=== PATIENT | female | born 1990 | race Native Hawaiian/Other Pacific Islander ===

== ENCOUNTER → 2017-01-30 | Outpatient (CLI) | payer OTHER ==
[~2017-01-30] MED LIST: ADVI200C9 PO; PHEN1.4%S MT; TYLE3 PO
== END ==
LOC: HPND 10:36
DX: O36.8120 Decreased fetal movements, second trimester, not applicable or unspecified (principal); O35.1XX0 Maternal care for (suspected) chromosomal abnormality in fetus, not applicable or unspecified; Z3A.24 24 weeks gestation of pregnancy
CPT/HCPCS: 76811

== ENCOUNTER → 2017-03-05 | Outpatient (CLI) | payer OTHER | LOC: HPND 08:02 | DX: O99.213 Obesity complicating pregnancy, third trimester (principal); Z3A.29 29 weeks gestation of pregnancy | CPT/HCPCS: 76816 ==

== ENCOUNTER → 2017-03-27 | Outpatient (CLI) | payer OTHER | LOC: HPND 09:08 | DX: O35.2XX0 Maternal care for (suspected) hereditary disease in fetus, not applicable or unspecified (principal); O99.213 Obesity complicating pregnancy, third trimester; R94.5 Abnormal results of liver function studies; Z3A.32 32 weeks gestation of pregnancy | CPT/HCPCS: 76811 ==

== ENCOUNTER 2017-04-04 08:57 | Emergency (ER) | payer OTHER ==
--- NOTE | 2017-04-04 09:39 | PD ---
HPI Chief Complaint Decreased movement Date Seen: April 04, 2017 Time Seen: 09:20 (Bhavik Gramajo MD R1) Travel History International Travel<30 Days: No Contact w/Intl Traveler<30Days: No Known Affected Area: No (Bhavik Gramajo MD R1) History of Present Illness HPI Patient is a 26-year-old at 33 weeks and 6 days and presents with decreased movement. She reports not feeling baby move since 4 AM. At that time she had some periumbilical pain which she described as an 8-10 out of 10. Now her periumbilical pain is about a 6 out of 10. Patient reports that usually 6 AM to 10 AM is when movement is most active. Patient denies any contractions, leakage of fluid, vaginal bleeding. Patient reports that she was recently diagnosed with fatty liver and now follows with Dr. Saenz of maternal- medicine here at [place]. She gets her routine care with Dr. Villegas in [place]. Patient denies any headache, visual changes, chest pain. She does endorse some shortness of breath yesterday and today. She also endorses some nausea. She denies any lower extremity pain, lower extremity swelling, dysuria, fever, chills, and vomiting. Para: 0 : 1 (Bhavik Gramajo MD R1) History Past Medical History Narrative Medical Patient follows with Dr. Saenz of maternal medicine here at [place] for fatty liver. She denies any other medical problems. (Bhavik Gramajo MD R1) Obstetric History Obstetric History Patient reports that this is her first and only . (Bhavik Gramajo MD R1) Past Surgical History Surgical History: No Previous Surgery (Bhavik Gramajo MD R1) Family History Narrative Family History Patient reports history of diabetes and hypertension in both her mother's side and her father's side. She has an aunt with asthma. (Bhavik Gramajo MD R1) Social History Narrative Social History Patient lives at home with her mom and . Alcohol Use: No (she denies any history of alcohol use. She has only had 1 beer ever.) Tobacco Use: No Substance Abuse: No (Bhavik Gramajo MD R1) Allergies-Medications (Allergen,Severity, Reaction): Coded Allergies: Sudafed (Verified Allergy, Severe, HIVES, 07/11/08) Home Meds Reported Medications Acetaminophen/Codeine (Tylenol #3)300 Mg/30 Mg Tab1 Tab PO Q4HPRN #20 Ref 0 FOR PAIN 07/12/08 Phenol (Chloraseptic [place])180 Ml Liqd2 Spr MT Q4HPRN Ref 0 07/12/08 Ibuprofen (Advil)200 Mg [id number] Mg PO QIDPRN #2 Ref 0 07/12/08 Review of Systems General / Constitutional: No: Fever, Chills Eyes: No: Blurred Vision, Visual changes HENT: No: Headaches Cardiovascular: No: Chest Pain or Discomfort Respiratory: No: Short of Breath Gastrointestinal: Nausea, Abdominal Pain, No: Vomiting Genitourinary: No: Dysuria (Bhavik Gramajo MD R1) Physical Exam Patient is tachycardic to a rate of 109, but otherwise afebrile vital signs stable and within normal limits. Narrative GENERAL: Well-nourished, well-developed patient. SKIN: Warm and dry. HEAD: Normocephalic and atraumatic. EYES: No scleral icterus. No injection or drainage. ENT: No nasal drainage noted. Mucous membranes pink. Airway patent. NECK: Supple, trachea midline. No JVD. CARDIOVASCULAR: Regular rate and rhythm without murmurs, gallops, or rubs. RESPIRATORY: Breath sounds equal bilaterally. No accessory muscle use. ABDOMEN/GI: Abdomen soft, non-tender, bowel sounds present, no rebound, no guarding Gravid to 34 weeks size FHT's: Category: Category 1 Baseline: 160 Reactive: Reactive Variability: Moderate variability Decels: None EXTREMITIES: No cyanosis or edema. BACK: Nontender without obvious deformity. No CVA tenderness. NEUROLOGICAL: Awake and alert. Motor and sensory grossly within normal limits. Five out of 5 muscle strength in all muscle groups. Normal speech. (Bhavik Gramajo MD R1) Data Data Vital Signs Reviewed: Yes (Bhavik Gramajo MD R1) MDM Plan Patient is a 26-year-old at 33 weeks and 6 days and presents with subjectively decreased movement. 1. possible decreased movement. Monitor vital signs: Tachycardic but afebrile vital signs stable and within normal limits. Monitor labor status: Tocometry shows no contractions Nonstress test shows reassuring category 1 tracing Encourage by mouth hydration Provided reassurance dw Dr. Culver and Dr. Morrison. (Bhavik Gramajo MD R1) Diagnosis Diagnosis: Primary Impression: Normal in third trimester Disposition: 01 DISCHARGE HOME Condition: Good Collaborating MD Comments Agree with management and plan of care (Hodan Morrison MD) Bhavik Gramajo MD R1 April 04, 2017 09:39 Hodan Morrison MD April 04, 2017 17:35
[2017-04-04 09:43] VITALS: BP 136/96; PULSE 96
[2017-04-04 10:07] VITALS: BP 127/76; PULSE 101
== END 2017-04-04 10:13 | disposition home or self-care (01) ==
LOC: HOBED 08:57
DX: Z34.03 Encounter for supervision of normal first pregnancy, third trimester (principal)
CPT/HCPCS: 59025

== ENCOUNTER 2017-04-17 20:23 | Emergency (ER) | payer OTHER ==
--- NOTE | 2017-04-17 21:25 | PD ---
HPI Chief Complaint Decreased movement Date Seen: Apr 17, 2017 Travel History International Travel<30 Days: No Contact w/Intl Traveler<30Days: No Known Affected Area: No History of Present Illness HPI Patient's 26-year-old white female at 35 weeks presents with decreased movement noted today. She denies bleeding pain or rupture the membranes and the heart rate tracing is reactive here on OB ED, the patient states baby is moving well now that she's been here has a history of fatty liver be followed by endocrinology in her OB team of and the maternal medicine service here. Para: 0 : 1 History Past Medical History Narrative Medical Fatty liver Social History Alcohol Use: No Tobacco Use: No Substance Abuse: No Allergies-Medications (Allergen,Severity, Reaction): Coded Allergies: Sudafed (Verified Allergy, Severe, HIVES, 07/11/08) Home Meds Reported Medications Acetaminophen/Codeine (Tylenol #3)300 Mg/30 Mg Tab1 Tab PO Q4HPRN #20 Ref 0 FOR PAIN 07/12/08 Phenol (Chloraseptic [place])180 Ml Liqd2 Spr MT Q4HPRN Ref 0 07/12/08 Ibuprofen (Advil)200 Mg [id number] Mg PO QIDPRN #2 Ref 0 07/12/08 Review of Systems General / Constitutional: No: Fever, Weight Gain, Chills, Other Eyes: No: Diploplia, Blurred Vision, Visual changes, Pain, Photophobia HENT: No: Headaches, Vertigo, Lightheadedness Cardiovascular: No: Irregular Rhythm, Chest Pain or Discomfort, Palpitations, Tachycardia, Syncope, Varicosities, Edema, Cyanosis Respiratory: No: Cough, Short of Breath, Other Gastrointestinal: No: Nausea, Vomiting, Diarrhea Genitourinary: No: Decreased Urinary Output, Oliguria Musculoskeletal: No: Limited ROM, Weakness, Cramping, Edema, Pain Skin: No Rash, No Itching, No Dryness, No Lumps, No Change in Pigmentation, No Change in Nails, No Alopecia, No Lesions Neurologic: No: Weakness, Dizziness, Syncope, Focal Abnormalities, Coordination Problem, Headache, Slurred Speech, Seizures Psychiatric: No: Depression, Suicidal Ideations, Homicidal Ideation Endocrine: No: Heat Intolerance, Cold Intolerance, Polydipsia, Polyuria, Other Physical Exam Narrative GENERAL: Well-nourished, well-developed patient. SKIN: Warm and dry. HEAD: Normocephalic and atraumatic. EYES: No scleral icterus. No injection or drainage. ENT: No nasal drainage noted. Mucous membranes pink. Airway patent. NECK: Supple, trachea midline. No JVD. CARDIOVASCULAR: Regular rate and rhythm without murmurs, gallops, or rubs. RESPIRATORY: Breath sounds equal bilaterally. No accessory muscle use. BREASTS: Bilateral exam showed no masses , no retractions, no nipple discharge. ABDOMEN/GI: Abdomen soft, non-tender, bowel sounds present, no rebound, no guarding Gravid to [35-] weeks size Fundal Height: [35-] GENITOURINARY: Membranes: [intact ] Uterine Contractions: [none-] FHT's: Category: [1-] Baseline: [-144] Reactive: [yes-] Variability: [mod-] Decels: [none-] EXTREMITIES: No cyanosis or edema. BACK: Nontender without obvious deformity. No CVA tenderness. NEUROLOGICAL: Awake and alert. Motor and sensory grossly within normal limits. Five out of 5 muscle strength in all muscle groups. Normal speech. MDM Interpretation(s) Patient is 26-year-old white female at 35 weeks who presents planning of decreased movement today. Patient had no complaints of pains leakage or bleeding. The here on OB ED heart rate tracing is reactive. Plan Plan to discharge home this evening. She has follow-up appointments in 2 days with her OB doctor in endocrinology and maternal medicine team for her fatty liver . Tonight her heart rate tracing is reactive she is not diony and she has no other problems and is feeling the baby move now Diagnosis Diagnosis: Primary Impression: Decreased movement affecting management of in third trimester Disposition: 01 DISCHARGE HOME Condition: Stable Brandon Zhu II, MD Apr 17, 2017 21:25
== END 2017-04-17 21:27 | disposition home or self-care (01) ==
LOC: HOBED 20:23
DX: O36.8130 Decreased fetal movements, third trimester, not applicable or unspecified (principal); Z3A.35 35 weeks gestation of pregnancy
CPT/HCPCS: 99281

== ENCOUNTER 2017-09-26 01:38 | Emergency (ER) | payer OTHER ==
[~2017-09-26] VITALS: Ht 172.7 cm; Wt 130.0 kg
[2017-09-26 01:39] VITALS: BP 128/88; PULSE 93; RESP 18; TEMP 97.4; O2SAT 100
[2017-09-26 02:02] VITALS: BP 127/83; PULSE 74; RESP 18; O2SAT 98
--- NOTE | 2017-09-26 02:20 | PD ---
HPI Chief Complaint: Allergic/Adverse Reaction Time Seen by Provider: 02:15 Travel History International Travel<30 days: No Contact w/Intl Traveler<30days: No Traveled to known affect area: No History of Present Illness HPI 27-year-old female came to the emergency room after she experienced sudden onset of palpitation, feeling like she could not breathe and restlessness after she applied some essential oil on her skin. Patient called poison control and was told that she may have applied a little too much and should go to the emergency room. Patient has used that essential oil in the past. She has never had this kind of reaction. She thinks she may have used Advil too much. Currently she says she feels fine. Vital signs are stable. She is otherwise a healthy person. She is not on any other medications at home. [facility] Past Medical History Narrative Medical List of her past medical, surgical, social and family history is reviewed from the nursing note. Asthma: No Blood Disorders: No Depression: Yes Cardiovascular Problems: No Cystic Fibrosis: No Diminished Hearing: No Genitourinary: No Medical other: Yes (ACUTE FATTY LIVER DISEASE OF ) Musculoskeletal: No Neurologic: No Respiratory: No Immunizations Current: Yes Sickle Cell Disease: No Sleep Apnea: No ?: Not LMP: 09/21/17 Past Surgical History Section: Yes Social History Alcohol Use: No Tobacco Use: No Substance Use: No Allergies-Medications (Allergen,Severity, Reaction): Coded Allergies: pseudoephedrine (Unverified Allergy, Severe, HIVES, 09/26/17) diphenhydramine (Unverified Adverse Reaction, Severe, Anaphylaxis, ) "I SWELL UP AND HAVE TROUBLE BREATHING" Comments List of her allergies reviewed from the nursing note. Reported Meds & Prescriptions Reported Meds & Active Scripts Active No Active Prescriptions or Reported Medications Narrative Medication List of her home medications reviewed from the nursing note. Review of Systems Except as stated in HPI: all other systems reviewed are Neg Cardiovascular: Positive: Palpitations Respiratory: Positive: Shortness of Breath Physical Exam Narrative GENERAL: Awake, alert, morbidly obese, no obvious distress SKIN: Focused skin assessment warm/dry. HEAD: Atraumatic. Normocephalic. EYES: Pupils equal and round. No scleral icterus. No injection or drainage. ENT: No nasal bleeding or discharge. Mucous membranes pink and moist. NECK: Trachea midline. No JVD. CARDIOVASCULAR: Regular rate and rhythm. No murmur appreciated. RESPIRATORY: No accessory muscle use. Clear to auscultation. Breath sounds equal bilaterally. GASTROINTESTINAL: Abdomen soft, non-tender, nondistended. Hepatic and splenic margins not palpable. MUSCULOSKELETAL: No obvious deformities. No clubbing. No cyanosis. No edema. NEUROLOGICAL: Awake and alert. No obvious cranial nerve deficits. Motor grossly within normal limits. Normal speech. PSYCHIATRIC: Appropriate mood and affect; insight and judgment normal. Data Data Last Documented VS Orders Orders Ed Discharge Order (09/26/17 02:25) [facility] Medical Decision Making Medical Screen Exam Complete: Yes Emergency Medical Condition: Yes Medical Record Reviewed: Yes Differential Diagnosis Possible reaction to the essential oils, palpitations, panic attack Narrative Course 2:29 AM since patient is feeling completely fine I'm comfortable discharging her home. Physical exam was within normal limits. Vital signs are stable. Patient is comfortable going home. Procedures EKG Prior to Arrival: No Diagnosis Primary Impression: Palpitations Additional Impression: possible adverse reaction to essential oil Referrals: Primary Care Physician Additional Instructions: Use the natural products/essential oil in moderation and future. Follow-up with your primary care. Med/Other Pt SpecificInfo: No Change to Meds Scripts No Active Prescriptions or Reported Meds Disposition: 01 DISCHARGE HOME Condition: Stable Figueroa Mendez MD Sep 26, 2017 02:20
== END 2017-09-26 02:40 | disposition home or self-care (01) ==
LOC: NEPC 01:38
DX: R00.2 Palpitations (principal); R06.02 Shortness of breath; F32.9 Major depressive disorder, single episode, unspecified; Z88.8 Allergy status to other drugs, medicaments and biological substances
CPT/HCPCS: 99282